=== PATIENT | female | born 1990 | race African-American/Black ===

== ENCOUNTER 2017-05-09 12:08 | Emergency (ER) | payer SELFPAY ==
[~2017-05-09] VITALS: Ht 170.2 cm; Wt 109.0 kg
[2017-05-09 14:00] VITALS: BP 146/82
== END 2017-05-09 14:02 | disposition home or self-care (01) ==
LOC: ER 13:23
DX: R07.89 Other chest pain (principal); R10.13 Epigastric pain; E11.9 Type 2 diabetes mellitus without complications
CPT/HCPCS: 99283

== ENCOUNTER 2017-09-22 16:16 | Emergency (ER) | payer OTHER ==
[~2017-09-22] VITALS: Ht 170.2 cm; Wt 109.0 kg
[2017-09-22 16:18] VITALS: BP 169/105
[2017-09-22] MEDS ORDERED: METF500T4 PO (16:21)
[2017-09-22] MEDS ORDERED: ACETAMINOPHEN 500MG TABLET PO ONE (17:15)
== END 2017-09-22 17:23 | disposition home or self-care (01) ==
LOC: ER 16:34
DX: J06.9 Acute upper respiratory infection, unspecified (principal); E11.9 Type 2 diabetes mellitus without complications
CPT/HCPCS: 99283

== ENCOUNTER 2017-12-17 20:33 | Emergency (ER) | payer OTHER ==
[~2017-12-17] VITALS: Ht 170.2 cm; Wt 109.0 kg
[~2017-12-17 20:33] MED LIST: METF500T4 PO
[2017-12-17 20:40] VITALS: BP 149/88
[2017-12-18 00:15] LABS: CLARITY URINE CLEAR (CLEAR); COLOR URINE YELLOW (YELLOW); KETONES URINE NEGATIVE (NEGATIVE); LEUKOCYTE ESTERASE URINE 1+ (NEGATIVE); NITRITE URINE NEGATIVE (NEGATIVE); OCCULT BLOOD URINE NEGATIVE (NEGATIVE); PH URINE 5.5 (4.5-8.0); PROTEIN URINE NEGATIVE (NEGATIVE); SPECIFIC GRAVITY URINE 1.013 (1.005-1.030); UROBILINOGEN URINE 0.2 E.U./dL (0.2-1.0)
== END 2017-12-18 01:13 | disposition home or self-care (01) ==
LOC: ER 22:30
DX: J02.9 Acute pharyngitis, unspecified (principal); N39.0 Urinary tract infection, site not specified; R07.9 Chest pain, unspecified; E11.9 Type 2 diabetes mellitus without complications
CPT/HCPCS: 71045; 81001; 81003; 81025; 82962; 87086; 93005; 99285